=== PATIENT | female | born 1960 | race African-American/Black ===

== ENCOUNTER 2017-07-27 14:29 | Emergency (ER) | payer MEDICAID, OTHER ==
[~2017-07-27] VITALS: Ht 160 cm; Wt 69.1 kg
[2017-07-27] MEDS ORDERED: MORPHINE SULFATE 10 MG/ML SYRINGE IM ONE (15:30)
[2017-07-27] MEDS ORDERED: ONDANSETRON HCL 4 MG/2 ML VIAL IM ONE (15:30)
[2017-07-27] MEDS ORDERED: LIDOCAINE HCL 1%/EPI 1:200,000/PF 10 ML VIAL INJ ONE (15:30)
[2017-07-27] MEDS ORDERED: POVIDONE-IODINE 10% 15 ML SOLUTION UD TP ONE (16:00)
[2017-07-27] MEDS ORDERED: LIDOCAINE HCL 1%/EPI 1:200,000/PF 30 ML VIAL INJ ONE (16:30)
[2017-07-27] MEDS ORDERED: PERTUSS(ACELL),DIPH,TET VAC/PF 0.5 ML VIAL IM ONE (17:15)
[2017-07-27 17:17] VITALS: BP 139/87
== END 2017-07-27 17:51 | disposition home or self-care (01) ==
LOC: EMS 14:33
DX: L02.214 Cutaneous abscess of groin (principal); L98.9 Disorder of the skin and subcutaneous tissue, unspecified; F17.210 Nicotine dependence, cigarettes, uncomplicated; F19.90 Other psychoactive substance use, unspecified, uncomplicated
CPT/HCPCS: 10060; 90471; 90715; 96372; 99284; J2270; J2405; J3490

== ENCOUNTER 2019-11-23 09:46 | Emergency (ER) | payer MEDICAID, OTHER ==
[~2019-11-23] VITALS: Ht 157.5 cm; Wt 85.9 kg
[2019-11-23] MEDS ORDERED: SULFAMETHOX/TRIMETH DS 800-160 MG/TABLET PO ONE (10:45)
[2019-11-23] MEDS ORDERED: LIDOCAINE 1%/EPI 1:200,000/PF 10 ML VIAL INJ ONE (10:45)
[2019-11-23] MEDS ORDERED: CEPHALEXIN MONOHYDRATE 500 MG CAPSULE PO ONE (10:45)
[2019-11-23] MEDS ORDERED: KETOROLAC TROMETHAMINE 30 MG/ML VIAL IM ONE (10:45)
[2019-11-23 11:04] VITALS: BP 137/80
== END 2019-11-23 11:19 | disposition home or self-care (01) ==
LOC: EMS 09:51
DX: L02.415 Cutaneous abscess of right lower limb (principal); F17.210 Nicotine dependence, cigarettes, uncomplicated; F19.90 Other psychoactive substance use, unspecified, uncomplicated
CPT/HCPCS: 10060; 96372; 99283; 99406; J1885; J3490

== ENCOUNTER 2020-02-03 21:01 | Emergency (ER) | payer OTHER ==
[~2020-02-03] VITALS: Ht 157.5 cm; Wt 86.4 kg
[2020-02-04] MEDS ORDERED: SULFAMETHOX/TRIMETH DS 800-160 MG/TABLET PO ONE (00:45)
[2020-02-04] MEDS ORDERED: CefTRIAXone SODIUM 1 GM/VIAL IM ONE (00:45)
[2020-02-04] MEDS ORDERED: LIDOCAINE/PF 1% 2 ML VIAL IM ONE (00:45)
[2020-02-04 01:15] VITALS: BP 140/82
[2020-02-05] MEDS ORDERED: SULF-289 PO (20:23)
[2020-02-05] MEDS ORDERED: CEPH-582 PO (20:23)
== END 2020-02-04 01:17 | disposition home or self-care (01) ==
LOC: EMS 21:01
DX: L03.116 Cellulitis of left lower limb (principal); L03.115 Cellulitis of right lower limb; F12.90 Cannabis use, unspecified, uncomplicated; F15.90 Other stimulant use, unspecified, uncomplicated; Z87.891 Personal history of nicotine dependence
CPT/HCPCS: 96372; 99283; J0696; J3490

== ENCOUNTER → 2020-02-05 | Emergency (ER) | payer OTHER ==
[~2020-02-05] VITALS: Ht 160 cm; Wt 81.4 kg
[~2020-02-05] MED LIST: CEPH-582 PO; SULF-289 PO
[2020-02-05 20:43] VITALS: BP 105/67
== END | disposition home or self-care (01) ==
LOC: EMS 20:25
DX: M79.604 Pain in right leg (principal); M79.605 Pain in left leg; M79.89 Other specified soft tissue disorders; F12.90 Cannabis use, unspecified, uncomplicated; F19.90 Other psychoactive substance use, unspecified, uncomplicated; Z87.891 Personal history of nicotine dependence
CPT/HCPCS: Z7502

== ENCOUNTER 2021-03-30 21:57 | Emergency (ER) | payer MEDICARE, OTHER ==
[~2021-03-30] VITALS: Ht 160 cm; Wt 78.2 kg
[~2021-03-30 21:57] MED LIST changes: -SULF-289 PO; +SULF1TAB PO
[2021-03-31] MEDS ORDERED: IBUPROFEN 800 MG TABLET PO ONE (00:45)
[2021-03-31] MEDS ORDERED: CEPHALEXIN MONOHYDRATE 500 MG CAPSULE PO ONE (00:45)
[2021-03-31] MEDS ORDERED: SULFAMETHOX/TRIMETH DS 800-160 MG/TABLET PO ONE (00:45)
[2021-03-31 02:00] VITALS: BP 146/90
== END 2021-03-31 02:17 | disposition home or self-care (01) ==
LOC: EMS 22:00
DX: L03.012 Cellulitis of left finger (principal); I10 Essential (primary) hypertension; F12.90 Cannabis use, unspecified, uncomplicated; F19.90 Other psychoactive substance use, unspecified, uncomplicated; Z87.891 Personal history of nicotine dependence
CPT/HCPCS: 99283; 99284

== ENCOUNTER 2023-08-26 16:35 | Emergency (ER) | payer MEDICARE, OTHER ==
[~2023-08-26] VITALS: Ht 160 cm; Wt 77.3 kg
[2023-08-26 16:44] VITALS: BP 144/89; PULSE 105; RESP 18; TEMP 98.2
[2023-08-26] MEDS: BACLOFEN 10 MG TABLET PO ONE (20:03)
[2023-08-26] MEDS: LIDOCAINE 5% TRANSDERMAL PATCH TD ONE (20:03)
[2023-08-26] MEDS: ACETAMINOPHEN 500 MG TABLET PO ONE (20:03)
[2023-08-26] MEDS ORDERED: BACL10TA PO (22:09)
[2023-08-26] MEDS ORDERED: IBUP-1492 PO (22:10)
== END 2023-08-26 22:27 | disposition home or self-care (01) ==
LOC: EMS 16:35
DX: S13.4XXA Sprain of ligaments of cervical spine, initial encounter (principal); I10 Essential (primary) hypertension; F12.90 Cannabis use, unspecified, uncomplicated; F15.90 Other stimulant use, unspecified, uncomplicated; Z87.891 Personal history of nicotine dependence; Z90.49 Acquired absence of other specified parts of digestive tract; V89.2XXA Person injured in unspecified motor-vehicle accident, traffic, initial encounter; Y93.89 Activity, other specified; Y92.89 Other specified places as the place of occurrence of the external cause; Y99.8 Other external cause status
CPT/HCPCS: 70450; 72125; 99284